=== PATIENT | female | born 1980 | race American Indian/Alaskan Native ===

== ENCOUNTER 2017-07-23 06:36 | Day surgery (SDC) | payer MEDICAID ==
[2017-07-23] MEDS ORDERED: WATER FOR IRRIG STERILE IR ONE (09:41)
[2017-07-23] MEDS ORDERED: HURRICAINE ONE 20% TOPICAL SPRAY MM ×2 (09:41→12:15)
[2017-07-23] MEDS ORDERED: NACL 0.9% 1000 ML 1,000 ML IV SCH (10:00)
[2017-07-23] MEDS ORDERED: XYLOCAINE MPF 2% ONE (10:00)
[2017-07-23] MEDS ORDERED: DIPRIVAN 10 MG/ML IV ONE (10:02)
[2017-07-23] MEDS ORDERED: XYLOCAINE 2% INFILTRATI ONE (10:02)
[2017-07-23] MEDS ORDERED: VERSED ONE (10:02)
--- NOTE | 2017-07-23 10:08 | Anesthesia Day of Surgery ---
Anesthesia Day of Surgery - Day of Surgery Patient Examined: Yes Patient H&P Reviewed: Yes Patient is NPO: Yes Beta Blockers: No Cardiac Clearance: No Pulmonary Clearance: No
--- NOTE | 2017-07-23 10:12 | Anesthesia Consultation ---
Anesthesia Consult and Med Hx - Airway Anesthetic Teeth Evaluation: Good (lower loose incisior) ROM Head & Neck: Adequate Mental/Hyoid Distance: Inadequate Mallampati Class: Class III Intubation Access Assessment: Possibly Difficult - Pulmonary Exam CTA: Yes - Cardiac Exam Cardiac Exam: No Murmur - Pre-Operative Health Status ASA Pre-Surgery Classification: ASA3 Proposed Anesthetic Plan: MAC - Pulmonary Hx Smoking: Yes Hx Asthma: No Hx Respiratory Symptoms: No SOB: No COPD: No Home Oxygen Therapy: No Hx Pneumonia: No Hx Sleep Apnea: Yes - Cardiovascular System Hx Hypertension: No Hx Coronary Artery Disease: No Hx Heart Attack/AMI: No Hx Angina: No Hx Percutaneous Transluminal Coronary Angioplasty (PTCA): No Hx Cardia Arrhythmia: No Hx Pacemaker: No Hx Internal Defibrillator: No Hx Valvular Heart Disease: No Hx Heart Murmur: No Hx Peripheral Vascular Disease: No - Central Nervous System Hx Neuromuscular Disorder: No Hx Seizures: No CVA: No Hx Back Pain: No Hx Psychiatric Problems: No - Gastrointestinal Hx Ulcer: No Hx Gastroesophageal Reflux Disease: No - Endocrine Hx Renal Disease: No Hx End Stage Renal Disease: No Hx Cirrhosis: No Hx Liver Disease: No Hx Insulin Dependent Diabetes: No Hx Non-Insulin Dependent Diabetes: Yes Hx Thyroid Disease: No - Hematic Hx Anemia: Yes - Other Systems Hx Alcohol Use: No Hx Substance Use: No Hx Cancer: No Hx Obesity: Yes
[2017-07-23 12:36] VITALS: BP 122/70
--- NOTE | 2017-07-23 14:23 | Post Anesthesia Evaluation ---
- Post Anesthesia Evaluation Patient Participated: Yes Airway Patent: Yes Stable Respiratory Function: Yes Nausea/Vomiting: No Temp > 96.8F: Yes Pain Manageable: Yes Adequeate Hydration: Yes Anesthesia Complications: No
[2017-07-23] MEDS ORDERED: HURRICAINE ONE 20% TOPICAL SPRAY MM NR (19:00)
== END 2017-07-23 06:37 | disposition home or self-care (01) ==
LOC: GIO 06:36
PROVIDERS: ATTEND Specialist
DX: K21.9 Gastro-esophageal reflux disease without esophagitis (principal); K44.9 Diaphragmatic hernia without obstruction or gangrene; K58.9 Irritable bowel syndrome, unspecified; K27.9 Peptic ulcer, site unspecified, unspecified as acute or chronic, without hemorrhage or perforation; G47.33 Obstructive sleep apnea (adult) (pediatric); E66.01 Morbid (severe) obesity due to excess calories; E11.9 Type 2 diabetes mellitus without complications; L40.9 Psoriasis, unspecified; F51.04 Psychophysiologic insomnia; F17.200 Nicotine dependence, unspecified, uncomplicated; Z88.8 Allergy status to other drugs, medicaments and biological substances; Z68.41 Body mass index [BMI] 40.0-44.9, adult
CPT/HCPCS: 43235; 81025; 82962; J2250; J2704; J7030

== ENCOUNTER 2017-08-11 11:37 | Emergency (ER) | payer MEDICAID ==
[2017-08-11] MEDS ORDERED: REGLAN IV ONE (12:50)
[2017-08-11] MEDS ORDERED: PROTONIX IV ONE (12:50)
[2017-08-11] MEDS ORDERED: NACL 0.9% 1000 ML 1,000 ML IV ONE (12:50)
--- NOTE | 2017-08-11 12:50 | Emergency Department Report ---
ED Abdominal Pain HPI - General Chief Complaint: Abdominal Pain Stated Complaint: VOMITNG Time Seen by Provider: 08/11/17 12:11 Source: patient Mode of arrival: Wheelchair Limitations: No Limitations - History of Present Illness MD Complaint: abdominal pain -: Sudden Location: epigastric Radiation: back Migration to: no migration Severity scale (0 -10): 5 Quality: cramping, sharp Improves With: nothing Worsens With: nothing Associated Symptoms: nausea, vomiting. denies: diarrhea, fever, chills, constipation - Related Data Previous Rx's Medication Instructions Recorded Last Taken Type Metoclopramide [Reglan] 10 mg PO TID PRN 5 Days #15 tab 08/11/17 Unknown Rx Allergies Allergy/AdvReac Type Severity Reaction Status Date / Time ondansetron Allergy Rash ON Verified 07/25/17 11:27 [From Zofran (as SITE/ hydrochloride)] RESDNESS TO THE ARM pseudoephedrine Allergy RAPID Verified 07/25/17 11:27 [From Sudafed] HEART RATE UNABLE TO BREATH shellfish derived Allergy UNABLE TO Verified 07/25/17 11:27 BREATH/ THROAT CLOSES UP ED Review of Systems ROS: Stated complaint: VOMITNG Other details as noted in HPI Comment: All other systems reviewed and negative Constitutional: denies: chills, fever Eyes: denies: eye pain, vision change ENT: denies: ear pain Respiratory: denies: cough, shortness of breath Cardiovascular: denies: chest pain, palpitations, dyspnea on exertion Endocrine: no symptoms reported Gastrointestinal: abdominal pain, nausea, vomiting. denies: diarrhea, constipation, hematemesis Genitourinary: denies: urgency, frequency Musculoskeletal: denies: back pain, joint swelling Skin: denies: rash, change in color Neurological: denies: headache, weakness, numbness, paresthesias Psychiatric: denies: anxiety, depression Hematological/Lymphatic: denies: easy bleeding, easy bruising ED Past Medical Hx - Past Medical History Hx Hypertension: No Hx Heart Attack/AMI: No Hx Diabetes: Yes (DIET CONTROLLED) Hx GERD: Yes Hx Liver Disease: No Hx Renal Disease: No Hx Arthritis: Yes (L ANKLE) Hx Seizures: No Hx Asthma: Yes ( A CHILD) Hx COPD: No Hx HIV: No Additional medical history: gastric sleave 07/30/2017 - Surgical History Hx Pacemaker: No Hx Internal Defibrillator: No Hx Appendectomy: Yes Additional Surgical History: left ankle plate, - Social History Smoking Status: Never Smoker Substance Use Type: None - Medications Home Medications: Home Medications Medication Instructions Recorded Confirmed Last Taken Type Metoclopramide [Reglan] 10 mg PO TID PRN 5 Days #15 tab 08/11/17 Unknown Rx ED Physical Exam - General Limitations: No Limitations General appearance: alert, obese - Head Head exam: Present: atraumatic, normocephalic, normal inspection - Eye Eye exam: Present: normal appearance, PERRL, EOMI Pupils: Present: normal accommodation - ENT ENT exam: Present: normal exam, normal orophraynx, mucous membranes moist - Neck Neck exam: Present: normal inspection, full ROM. Absent: tenderness - Respiratory Respiratory exam: Present: normal lung sounds bilaterally. Absent: respiratory distress, wheezes, rhonchi - Cardiovascular Cardiovascular Exam: Present: regular rate, normal rhythm, normal heart sounds - GI/Abdominal GI/Abdominal exam: Present: soft, tenderness, normal bowel sounds. Absent: guarding, rebound - Rectal Rectal exam: Present: deferred - Extremities Exam Extremities exam: Present: normal inspection. Absent: full ROM, normal capillary refill - Back Exam Back exam: Present: normal inspection, full ROM. Absent: tenderness, CVA tenderness (L) - Neurological Exam Neurological exam: Present: alert, oriented X3, CN II-XII intact - Psychiatric Psychiatric exam: Present: normal affect, normal mood - Skin Skin exam: Present: warm, dry, intact, normal color. Absent: rash ED Course Vital Signs 08/11/17 08/11/17 08/11/17 11:42 12:15 15:38 Temperature 98.1 F 98 F 97.7 F Pulse Rate 83 76 63 Respiratory 18 18 16 Rate Blood Pressure 132/96 Blood Pressure 119/63 103/85 [Left] O2 Sat by Pulse 99 98 100 Oximetry 08/11/17 16:24 Temperature Pulse Rate 80 Respiratory 18 Rate Blood Pressure Blood Pressure 112/60 [Left] O2 Sat by Pulse 98 Oximetry - Reevaluation(s) Reevaluation #1: 08/11/17 19:28 Patients abdominal pain resolved in the Emergency room. She was able to tolerate PO challenge without vomiting. ED Medical Decision Making - Lab Data Result diagrams: 08/11/17 13:28 08/11/17 13:28 - Radiology Data Radiology results: report reviewed, image reviewed - Medical Decision Making Abdominal Pain. Nausea and Vomiting. Critical care attestation.: If time is entered above; I have spent that time in minutes in the direct care of this critically ill patient, excluding procedure time. ED Disposition Clinical Impression: Abdominal pain Qualifiers: Abdominal location: epigastric Qualified Code(s): R10.13 - Epigastric pain Pancreatitis, acute Qualifiers: Pancreatitis type: unspecified pancreatitis type Acute pancreatitis complication: unspecified Qualified Code(s): K85.90 - Acute pancreatitis without necrosis or infection, unspecified Nausea and vomiting Qualifiers: Vomiting type: unspecified Vomiting Intractability: non-intractable Qualified Code(s): R11.2 - Nausea with vomiting, unspecified Disposition: TO HOME OR SELFCARE Is pt being admited?: No Does the pt Need Aspirin: No Condition: Stable Instructions: Pancreatitis (ED), Abdominal Pain (ED) Additional Instructions: Please follow up with your regular doctor as scheduled tomorrow. Return to the ED if your condition worsens. Prescriptions: Metoclopramide [Reglan] 10 mg PO TID PRN 5 Days #15 tab PRN Reason: Nausea And Vomiting Referrals: PRIMARY CARE,MD [Primary Care Provider] - 3-5 Days Time of Disposition: 15:45
[2017-08-11] MEDS ORDERED: SUBLIMAZE IV ONE (12:51)
[2017-08-11 13:54] LABS: Bacteria,Urine 2+ /HPF (Negative); Bilirubin,Urine NEG (Negative); Blood,Urine NEG (Negative); Color,Urine Yellow (Yellow); Mucus,Urine 3+ /HPF; Urobilinogen,Urine < 2.0 mg/dL (<2.0)
[2017-08-11 13:57] LABS: INR 0.95 (0.87-1.13)
[2017-08-11 14:00] LABS: Albumin 3.9 g/dL (3.9-5); HCG Qualitative,Urine Negative (Negative)
[2017-08-11 14:02] LABS: Basophils % (Auto) 0.4 % (0.0-1.8); Eosinophils # (Auto) 0.2 K/mm3 (0.0-0.4); Eosinophils % (Auto) 3.5 % (0.0-4.3); Hematocrit 35.9 % (30.3-42.9); Hemoglobin 11.4 gm/dl (10.1-14.3); Lymphocytes # (Auto) 1.8 K/mm3 (1.2-5.4); Lymphocytes % (Auto) 25.4 % (13.4-35.0); Mean Corpuscular HGB Conc 32 % (30-34); Mean Corpuscular Hemoglobin 23 pg (28-32); Mean Corpuscular Volume 71 fl (79-97); Mean Platelet Volume 7.6 fl (6-12); Monocytes # (Auto) 0.6 K/mm3 (0.0-0.8); Monocytes % (Auto) 8.2 % (0.0-7.3); Platelet Count 327 K/mm3 (140-440); Red Blood Count 5.03 M/mm3 (3.65-5.03)
[2017-08-11 14:15] LABS: Alanine Aminotransferase 14 units/L (7-56); BUN/Creatinine Ratio 13; Blood Urea Nitrogen 9 mg/dL (7-17); Calcium 9.2 mg/dL (8.4-10.2); Hemolysis Index 12; Lipase 64 units/L (13-60)
[2017-08-11 14:21] LABS: Bilirubin,Direct < 0.2 mg/dL (0-0.2)
--- NOTE | 2017-08-11 15:27 | Cat Scan Report ---
FINAL REPORT EXAM: CT ABDOMEN PELVIS W CON HISTORY: Abdominal Pain COMPARISON: None. TECHNIQUE: Multiple contiguous axial images were obtained from the lung bases to the pubic symphysis after administration of IV and oral contrast. Reformatted sagittal and coronal images were available for review. FINDINGS: Lung bases: Normal. Visualized heart and mediastinum: Normal. Liver: Normal. Spleen: Normal. Pancreas: Mild stranding around the junction of the pancreatic body and tail. No peripancreatic fluid collection. Gallbladder and Biliary Tree: No calcified gallstones. No biliary ductal dilatation. Adrenal glands: Normal. Kidneys: Symmetric enhancement to both kidneys. No hydronephrosis. Bladder: Normal. Pelvic organs: Normal uterus and ovaries. Bowel: Postsurgical changes of the stomach. No focal wall thickening. No evidence of obstruction. The appendix is not visualized and may have been removed. There is diverticulosis of the sigmoid colon without evidence of diverticulitis. Peritoneum: No significant mesenteric adenopathy. No free air or free fluid. Vasculature: Abdominal aorta is normal in caliber without evidence of aneurysm. Normal appearance of the portal venous system and the inferior vena cava. Bones and soft tissues: No suspicious osseous lesions. No acute fracture or dislocation. Small, fat containing bilateral inguinal hernias. IMPRESSION: 1. Mild stranding around the junction of the pancreatic body and tail that may represent pancreatitis. Recommend correlation with pancreatic enzymes. No peripancreatic fluid collection. 2. Diverticulosis of the sigmoid colon without evidence of diverticulitis.
[2017-08-11 16:32] VITALS: BP 112/60
== END 2017-08-11 16:24 | disposition home or self-care (01) ==
LOC: ED 11:37
DX: K85.90 Acute pancreatitis without necrosis or infection, unspecified (principal); E11.9 Type 2 diabetes mellitus without complications; K21.9 Gastro-esophageal reflux disease without esophagitis; J45.909 Unspecified asthma, uncomplicated; M19.072 Primary osteoarthritis, left ankle and foot; Z90.49 Acquired absence of other specified parts of digestive tract; Z88.8 Allergy status to other drugs, medicaments and biological substances; Z91.013 Allergy to seafood
CPT/HCPCS: 36415; 74177; 80048; 80074; 81001; 81025; 82150; 83690; 85025; 85610; 96361; 96374; 96375; 99283; C9113; J2765; J3010; J7030; Q9967

== ENCOUNTER 2018-09-28 09:40 | Emergency (ER) | payer MEDICAID ==
[2018-09-28] MEDS ORDERED: TORADOL IM ONE (11:41)
[2018-09-28 12:30] LABS: Bilirubin,Urine NEG (Negative); Blood,Urine NEG (Negative); Color,Urine Yellow (Yellow); Mucus,Urine 1+ /HPF; Protein,Urine <15 mg/dL mg/dL (Negative)
--- NOTE | 2018-09-28 13:06 | Emergency Department Report ---
ED Back Pain/Injury HPI - General Chief Complaint: Back Pain/Injury Stated Complaint: BACK PAIN Time Seen by Provider: 09/28/18 11:33 Source: patient Limitations: No Limitations - History of Present Illness Initial Comments: This is a 38-year-old female nontoxic, well nourished in appearance, no acute signs of distress presents to the ED with c/o of acute on chronic lower back pain. Patient stated that the past 1 week he was moving and developed this pain. Patient states has history of sciatica nerve pain which is similar symptoms as today. Patient states that pain radiates through to his left lower extremity. Patient denies any trauma. Denies any bladder or bowel instability. Patient denies any urinary symptoms. Denies any fever, chills, nausea, vomiting, headache, stiff neck, chest pain or shortness of breath. Patient denies any numbness or tingling. Denies any allergies. Denies significant past medical history. MD Complaint: back pain -: week(s) (1) Similar Symptoms Previously: Yes Place: home Radiation: left leg Severity: mild Severity scale (0 -10): 8 Quality: aching Consistency: intermittent Improves With: immobilization, sitting upright Worsens With: movement, walking Context: while lifting, turning/twisting Associated Symptoms: denies other symptoms. denies: confusion, weakness, chest pain, numbness, difficulty walking, cough, difficulty urinating, diaphoresis, incontinence, fever/chills, constipation, headaches, abdominal pain, loss of appetite, malaise, nausea/vomiting, rash, seizure, shortness of breath, syncope - Related Data Previous Rx's Medication Instructions Recorded Last Taken Type Metoclopramide [Reglan] 10 mg PO TID PRN 5 Days #15 tab 08/11/17 Unknown Rx Cyclobenzaprine [Flexeril] 10 mg PO QHS PRN #10 tablet 09/28/18 Unknown Rx Ibuprofen [Motrin] 600 mg PO Q8H PRN #20 tablet 09/28/18 Unknown Rx Allergies Allergy/AdvReac Type Severity Reaction Status Date / Time ondansetron Allergy Rash ON Verified 09/28/18 09:54 [From Zofran (as SITE/ hydrochloride)] RESDNESS TO THE ARM pseudoephedrine Allergy RAPID Verified 09/28/18 09:54 [From Sudafed] HEART RATE UNABLE TO BREATH shellfish derived Allergy UNABLE TO Verified 09/28/18 09:54 BREATH/ THROAT CLOSES UP ED Review of Systems ROS: Stated complaint: BACK PAIN Other details as noted in HPI Constitutional: denies: chills, fever Eyes: denies: eye pain, eye discharge, vision change ENT: denies: ear pain, throat pain Respiratory: denies: cough, shortness of breath, wheezing Cardiovascular: denies: chest pain, palpitations Endocrine: no symptoms reported Gastrointestinal: denies: abdominal pain, nausea, diarrhea Genitourinary: denies: urgency, dysuria, discharge Musculoskeletal: back pain. denies: joint swelling, arthralgia Skin: denies: rash, lesions Neurological: denies: headache, weakness, paresthesias Psychiatric: denies: anxiety, depression Hematological/Lymphatic: denies: easy bleeding, easy bruising ED Past Medical Hx - Past Medical History Previous Medical History?: Yes Hx Hypertension: No Hx Heart Attack/AMI: No Hx Diabetes: Yes (DIET CONTROLLED) Hx GERD: Yes Hx Liver Disease: No Hx Renal Disease: No Hx Arthritis: Yes (L ANKLE) Hx Seizures: No Hx Asthma: Yes ( A CHILD) Hx COPD: No Hx HIV: No Additional medical history: gastric sleave 07/30/2017 - Surgical History Hx Pacemaker: No Hx Internal Defibrillator: No Hx Appendectomy: Yes Additional Surgical History: left ankle plate, - Social History Smoking Status: Never Smoker Substance Use Type: None - Medications Home Medications: Home Medications Medication Instructions Recorded Confirmed Last Taken Type Metoclopramide [Reglan] 10 mg PO TID PRN 5 Days #15 tab 08/11/17 Unknown Rx Cyclobenzaprine [Flexeril] 10 mg PO QHS PRN #10 tablet 09/28/18 Unknown Rx Ibuprofen [Motrin] 600 mg PO Q8H PRN #20 tablet 09/28/18 Unknown Rx ED Physical Exam - General Limitations: No Limitations General appearance: alert, in no apparent distress - Head Head exam: Present: atraumatic, normocephalic - Neck Neck exam: Present: normal inspection, full ROM. Absent: tenderness, meningismus, lymphadenopathy - Extremities Exam Extremities exam: Present: normal inspection, full ROM, normal capillary refill. Absent: tenderness - Back Exam Back exam: Present: normal inspection, full ROM, paraspinal tenderness (lumbar paraspinal). Absent: tenderness, CVA tenderness (R), CVA tenderness (L), muscle spasm, vertebral tenderness, rash noted - Expanded Back Exam Expanded Back exam: Absent: saddle anesthesia Back exam: Negative Straight Leg Raising: Left, Right - Neurological Exam Neurological exam: Present: alert, oriented X3, normal gait - Psychiatric Psychiatric exam: Present: normal affect, normal mood - Skin Skin exam: Present: warm, dry, intact, normal color. Absent: rash ED Course Vital Signs 09/28/18 09/28/18 09:54 11:50 Temperature 97.9 F Pulse Rate 84 Respiratory 17 18 Rate Blood Pressure 119/60 O2 Sat by Pulse 98 Oximetry - Reevaluation(s) Reevaluation #1: 09/28/18 13:04 Patient is speaking in full sentences with no signs of distress noted. ED Medical Decision Making - Medical Decision Making This is a 38-year-old female that presents with low back strain. Patient is stable was examined by me. There is no spinal tenderness. There is no cauda equina syndrome during examination. No bladder or bowel instability. Patient received Toradol 60 mg IM in the ED which preceded his symptoms has resolved and subsided. Patient is discharged with muscle relaxant and Motrin. Patient was instructed not to operate any machinery while taking muscle relaxant as they cause her drowsiness. Patient was referred to Follow-up with a primary care doctor in 3-5 days or if symptoms worsen and continue return to emergency room as soon as possible. At time of discharge, the patient does not seem toxic or ill in appearance. No acute signs of distress noted. Patient agrees to discharge treatment plan of care. No further questions noted by the patient. This chart is dictated with using [employer] Critical care attestation.: If time is entered above; I have spent that time in minutes in the direct care of this critically ill patient, excluding procedure time. ED Disposition Clinical Impression: Low back strain Disposition: -01 TO HOME OR SELFCARE Is pt being admited?: No Does the pt Need Aspirin: No Condition: Stable Instructions: Low Back Strain (ED), Cyclobenzaprine (By mouth) Additional Instructions: Follow-up with your primary care doctor in 3-5 days or if symptoms worsen such as bladder or bowel stability, chest pain, short of breath, numbness or tingling sensation in extremities, headache, dizziness, visual changes, nausea vomiting, or abdominal pain, return back to emergency room as was possible. Take ibuprofen and Flexeril as prescribed. Do not operate heavy machinery while taking Flexeril due to sedation Prescriptions: Cyclobenzaprine [Flexeril] 10 mg PO QHS PRN #10 tablet PRN Reason: Muscle Spasm Ibuprofen [Motrin] 600 mg PO Q8H PRN #20 tablet PRN Reason: Pain Referrals: PETERSON ACEVEDO MD [Primary Care Provider] - 3-5 Days PRIMARY MD YU [Referring] - 3-5 Days JEMMA JANG MD [Staff Physician] - 3-5 Days [facility] [Outside] - 3-5 Days [facility] [Outside] - 3-5 Days Forms: Work/School Release Form(ED)
[2018-09-28 13:21] VITALS: BP 128/89
== END 2018-09-28 13:21 | disposition home or self-care (01) ==
LOC: ED 09:40
DX: S39.012A Strain of muscle, fascia and tendon of lower back, initial encounter (principal); E11.9 Type 2 diabetes mellitus without complications; K21.9 Gastro-esophageal reflux disease without esophagitis; M25.572 Pain in left ankle and joints of left foot; J45.909 Unspecified asthma, uncomplicated; Z90.89 Acquired absence of other organs; Z88.8 Allergy status to other drugs, medicaments and biological substances; Z91.013 Allergy to seafood; X58.XXXA Exposure to other specified factors, initial encounter; Y93.89 Activity, other specified; Y92.009 Unspecified place in unspecified non-institutional (private) residence as the place of occurrence of the external cause; Y99.8 Other external cause status
CPT/HCPCS: 81001; 96372; 99283; J1885

== ENCOUNTER 2021-09-18 09:55 | Emergency (ER) | payer MEDICAID ==
[2021-09-18 10:13] VITALS: BP 141/81
[2021-09-18] MEDS ORDERED: ACETAMINOPHEN 500 MG TAB PO ONE (11:24)
[2021-09-18] MEDS ORDERED: FAMOTIDINE 20 MG TAB PO ONE (11:24)
[2021-09-18] MEDS ORDERED: PROMETHAZINE 25 MG TAB PO ONE (11:35)
[2021-09-18 14:27] LABS: HCG Qualitative,Urine Negative (Negative)
[2021-09-18 14:47] LABS: Bacteria,Urine 1+ /HPF (Negative); Mucus,Urine FEW /HPF
[2021-09-18 15:03] LABS: Color,Urine Yellow (Yellow)
[2021-09-18 15:04] LABS: Bilirubin,Urine Negative (Negative); Blood,Urine Negative (Negative)
[2021-09-18 15:05] LABS: PH,Urine 8.5 (5.0-7.0); Protein,Urine <30 mg dL mg/dL (Negative); Urobilinogen,Urine < 2.0 mg/dL (<2.0)
--- NOTE | 2021-09-18 15:23 | Emergency Department Report ---
ED General Adult HPI - General Chief complaint: Upper Respiratory Infection Stated complaint: BODYACHES,CHILLS Source: patient Mode of arrival: Ambulatory Limitations: No Limitations - History of Present Illness Initial comments: Patient is a 41-year-old -[place] female with a history of GERD, chronic osteoarthritis, asthma and taa-xnhvlld-edjyuwydg diabetes who presents to the ED with complaint of acute onset persistent diffuse body aches and pains, nasal and sinus congestion, epigastric pain with nausea for the last 3 days. Patient states that the pain has especially worsened in the last 2 days such that she is unable to keep anything down. Patient states that she has had gastric sleeve surgery in the past and therefore unable to take certain medications. Patient denies dizziness, syncope, nausea and vomiting, diarrhea, chest pain or shortness of breath,, fever and chills, dysuria, urinary frequency and urgency, cough, sore throat, headache or lightheadedness and palpitations. MD Complaint: Body aches and pains, epigastric pain -: Sudden, days(s) (3) Location: abdomen (epigastric), upper extremity, lower extremity Radiation: non-radiation Severity scale (0 -10): 10 Quality: aching, sharp Consistency: constant Improves with: none Worsens with: movement Associated Symptoms: denies other symptoms, loss of appetite, malaise, nausea/vomiting. denies: confusion, chest pain, cough, diaphoresis, fever/chills, headaches, rash, seizure, shortness of breath, syncope, weakness Treatments Prior to Arrival: none - Related Data Previous Rx's Medication Instructions Recorded Last Taken Type Cyclobenzaprine [Flexeril] 10 mg PO QHS PRN #10 tablet 09/28/18 Unknown Rx Ibuprofen [Motrin] 600 mg PO Q8H PRN #20 tablet 09/28/18 Unknown Rx Acetaminophen [Tylenol] 500 mg PO Q6HR PRN #40 tablet 09/18/21 Unknown Rx Baclofen 20 mg PO Q12H PRN #20 tab 09/18/21 Unknown Rx Dicyclomine [Bentyl] 20 mg PO Q6H #30 tablet 09/18/21 Unknown Rx Famotidine [Pepcid] 20 mg PO BID #60 tablet 09/18/21 Unknown Rx Metoclopramide [Reglan TAB] 10 mg PO TID PRN 5 Days #15 tab 09/18/21 Unknown Rx Omeprazole 40 mg PO DAILY #40 cap 09/18/21 Unknown Rx Allergies Allergy/AdvReac Type Severity Reaction Status Date / Time ondansetron Allergy Rash ON Verified 09/28/18 09:54 [From Zofran (as SITE/ hydrochloride)] RESDNESS TO THE ARM pseudoephedrine Allergy RAPID Verified 09/28/18 09:54 [From Sudafed] HEART RATE UNABLE TO BREATH shellfish derived Allergy UNABLE TO Verified 09/28/18 09:54 BREATH/ THROAT CLOSES UP ED Review of Systems ROS: Stated complaint: BODYACHES,CHILLS Other details as noted in HPI Constitutional: denies: chills, fever Eyes: denies: eye pain, eye discharge, vision change ENT: congestion. denies: ear pain, throat pain Respiratory: denies: cough, shortness of breath, wheezing Cardiovascular: denies: chest pain, palpitations Endocrine: no symptoms reported Gastrointestinal: abdominal pain (epigastric), nausea, vomiting. denies: diarrhea Genitourinary: denies: urgency, dysuria, discharge Musculoskeletal: denies: back pain, joint swelling, arthralgia Skin: denies: rash, lesions Neurological: denies: headache, weakness, paresthesias Psychiatric: denies: anxiety, depression Hematological/Lymphatic: denies: easy bleeding, easy bruising ED Past Medical Hx - Past Medical History Hx Hypertension: No Hx Heart Attack/AMI: No Hx Diabetes: Yes (DIET CONTROLLED) Hx GERD: Yes Hx Liver Disease: No Hx Renal Disease: No Hx Arthritis: Yes (L ANKLE) Hx Seizures: No Hx Asthma: Yes ( A CHILD) Hx COPD: No Hx HIV: No Additional medical history: gastric sleave 07/30/2017 - Surgical History Hx Pacemaker: No Hx Internal Defibrillator: No Hx Appendectomy: Yes Additional Surgical History: left ankle plate, - Social History Smoking Status: Never Smoker - Medications Home Medications: Home Medications Medication Instructions Recorded Confirmed Last Taken Type Cyclobenzaprine [Flexeril] 10 mg PO QHS PRN #10 tablet 09/28/18 Unknown Rx Ibuprofen [Motrin] 600 mg PO Q8H PRN #20 tablet 09/28/18 Unknown Rx Acetaminophen [Tylenol] 500 mg PO Q6HR PRN #40 tablet 09/18/21 Unknown Rx Baclofen 20 mg PO Q12H PRN #20 tab 09/18/21 Unknown Rx Dicyclomine [Bentyl] 20 mg PO Q6H #30 tablet 09/18/21 Unknown Rx Famotidine [Pepcid] 20 mg PO BID #60 tablet 09/18/21 Unknown Rx Metoclopramide [Reglan TAB] 10 mg PO TID PRN 5 Days #15 tab 09/18/21 Unknown Rx Omeprazole 40 mg PO DAILY #40 cap 09/18/21 Unknown Rx ED Physical Exam - General Limitations: No Limitations General appearance: alert, in no apparent distress - Head Head exam: Present: atraumatic, normocephalic, normal inspection - Eye Eye exam: Present: normal appearance, PERRL, EOMI Pupils: Present: normal accommodation - ENT ENT exam: Present: normal exam, normal orophraynx, mucous membranes moist, TM's normal bilaterally, normal external ear exam - Neck Neck exam: Present: normal inspection, full ROM. Absent: tenderness - Respiratory Respiratory exam: Present: normal lung sounds bilaterally. Absent: respiratory distress, wheezes, rales, rhonchi, stridor, chest wall tenderness, accessory muscle use, decreased breath sounds, prolonged expiratory - Cardiovascular Cardiovascular Exam: Present: regular rate, normal rhythm, normal heart sounds. Absent: systolic murmur, diastolic murmur, rubs, gallop - GI/Abdominal GI/Abdominal exam: Present: soft, tenderness (epigastric ), normal bowel sounds. Absent: guarding, rebound, hyperactive bowel sounds, hypoactive bowel sounds, organomegaly, mass, pulsatile mass - Extremities Exam Extremities exam: Present: normal inspection, full ROM, normal capillary refill. Absent: tenderness - Back Exam Back exam: Present: normal inspection, full ROM. Absent: tenderness, CVA tenderness (R), CVA tenderness (L), muscle spasm, paraspinal tenderness, vertebral tenderness - Neurological Exam Neurological exam: Present: alert, oriented X3, CN II-XII intact, normal gait, reflexes normal - Psychiatric Psychiatric exam: Present: normal affect, normal mood - Skin Skin exam: Present: warm, dry, intact, normal color. Absent: rash ED Course Vital Signs 09/18/21 10:10 Temperature 98.7 F Pulse Rate 64 Respiratory 17 Rate Blood Pressure 141/81 O2 Sat by Pulse 100 Oximetry ED Medical Decision Making - Medical Decision Making This is a 41-year-old -[place] female with a history of GERD, chronic osteoarthritis, asthma and azi-rocdzml-hqqtmigqa diabetes who presents to the ED with complaint of acute onset persistent diffuse body aches and pains, nasal and sinus congestion, epigastric pain with nausea for the last 3 days. Patient states that the pain has especially worsened in the last 2 days such that she is unable to keep anything down. Patient states that she has had gastric sleeve surgery in the past and therefore unable to take certain medications. In the ED, patient is alert and oriented x3 and is not in any distress. Patient was treated for pain in the ED. Urinalysis is unremarkable. On reevaluation, patient felt better and was discharged home on medications. Patient was advised to follow-up with her primary care physician in 7 to 10 days for reevaluation or return to the ED immediately if symptoms get worse. - Differential Diagnosis GERD; Viral syndrome; muscle spasm of back Critical care attestation.: If time is entered above; I have spent that time in minutes in the direct care of this critically ill patient, excluding procedure time. ED Disposition Clinical Impression: Acute viral syndrome, Epigastric abdominal pain GERD (gastroesophageal reflux disease) Qualifiers: Esophagitis presence: esophagitis presence not specified Qualified Code(s): K21.9 - Gastro-esophageal reflux disease without esophagitis Disposition: 01 HOME / SELF CARE / HOMELESS Is pt being admited?: No Does the pt Need Aspirin: No Condition: Stable Instructions: Viral Respiratory Infection, [id number], Abdominal Pain, Adult, [id number], Heartburn, [id number], Gastroesophageal Reflux Disease, Adult, [id number] Additional Instructions: All lab test results were reviewed and are all nonactionable. Therefore take medications with food, drink plenty of fluids and follow-up with your primary care physician in 7 to 10 days for reevaluation. Return to the ED immediately if symptoms get worse. Prescriptions: Acetaminophen [Tylenol] 500 mg PO Q6HR PRN #40 tablet PRN Reason: Pain , Severe (7-10) Baclofen 20 mg PO Q12H PRN #20 tab PRN Reason: Muscle Spasm Dicyclomine [Bentyl] 20 mg PO Q6H #30 tablet Omeprazole 40 mg PO DAILY #40 cap Famotidine [Pepcid] 20 mg PO BID #60 tablet Metoclopramide [Reglan TAB] 10 mg PO TID PRN 5 Days #15 tab PRN Reason: Nausea And Vomiting Referrals: [facility] [Provider Group] - 7-10 days Forms: Work/School Release Form(ED) Time of Disposition: 15:23 Print Language: LAO
== END 2021-09-18 16:38 | disposition home or self-care (01) ==
LOC: ED 09:55
DX: B34.9 Viral infection, unspecified (principal); R10.13 Epigastric pain; K21.9 Gastro-esophageal reflux disease without esophagitis; J45.909 Unspecified asthma, uncomplicated
CPT/HCPCS: 81001; 81025; 99283; Q0169